=== PATIENT | female | born 1955 | race Caucasian/White ===

== ENCOUNTER 2017-10-16 10:01 | Outpatient (CLI) | payer BC | END 2017-10-16 10:02 | disposition home or self-care (01) | LOC: BICRAD 10:01 | PROVIDERS: ATTEND Family Medicine | DX: R05 Cough (principal); R91.8 Other nonspecific abnormal finding of lung field | CPT/HCPCS: 71046 ==

== ENCOUNTER 2017-12-05 13:37 | Outpatient (CLI) | payer BC | END 2017-12-05 13:38 | disposition home or self-care (01) | LOC: BICRAD 13:37 | PROVIDERS: ATTEND Family Medicine | DX: J18.9 Pneumonia, unspecified organism (principal) | CPT/HCPCS: 71046 ==

== ENCOUNTER 2018-10-29 20:13 | Emergency (ER) | payer BC | END 2018-10-29 21:54 | disposition home or self-care (01) | LOC: SCSER 20:13 | DX: H66.91 Otitis media, unspecified, right ear (principal); E03.9 Hypothyroidism, unspecified; E78.5 Hyperlipidemia, unspecified; Z79.899 Other long term (current) drug therapy | CPT/HCPCS: 99282 ==

== ENCOUNTER 2018-11-12 14:31 | Outpatient (CLI) | payer BC ==
[2018-11-12 14:58] LABS: Estimated GFR-MDRD - POC Greater than 90
--- NOTE | 2018-11-12 15:47 | MRI ---
EXAM: MRI of the brain without and with contrast HISTORY: Right ear discomfort with hearing loss and tinnitus for 3 weeks COMPARISON: MRI brain 02/15/2012 TECHNIQUE: Multiplanar multisequence MR images were obtained of the brain without and with IV contras t. FINDINGS: The brain demonstrates normal signal intensity on all obtained sequences. No restricted diffusion. No abnormal enhancement. No hydronephrosis. No extra-axial fluid collection or intracranial hemorrhage. Thin cuts through the internal auditory canals shows a normal appearance of the 7th and 8th nerves. The cochlea and semicircular canals are symmetric. The expected flow voids are present. Corpus callosum, pituitary, and craniocervical junction are within normal limits. The calvarium and overlying soft tissues are unremarkable. The paranasal sinuses are well aerated. There is opacification of the right mastoid air cells. The le ft mastoid air cells are well aerated. IMPRESSION: 1. No evidence of acute intracranial abnormality. 2. Opacification of the right mastoid air cells.
== END 2018-11-12 14:32 | disposition home or self-care (01) ==
LOC: SCSMRI 14:31
PROVIDERS: ATTEND Family Medicine
DX: H92.09 Otalgia, unspecified ear (principal)
CPT/HCPCS: 70553; 82565

== ENCOUNTER 2022-09-28 20:18 | Observation (INO) | payer OTHER, MEDICARE ==
[2022-09-28] MEDS ORDERED: Ketorolac Tromethamine 30 MG/ML VIAL ONE (21:40)
[2022-09-28] MEDS ORDERED: Ondansetron PF 4 MG/2 ML Vial ONE (21:40)
[2022-09-28 21:41] LABS: ALT (SGPT) 16 U/L (8-55); AST (SGOT) 19 U/L (5-34); Albumin 3.2 g/dL (3.4-4.8); Alkaline Phosphatase 54 U/L (40-110); Anion Gap 11 mmol/L (10-20); BUN (Urea Nitrogen) 13 mg/dL (9.8-20.1); Bilirubin, Total 0.2 mg/dL (0.2-1.2); Calc. Creatinine Clearance 0 mL/min (70-130); Calcium 8.1 mg/dL (7.8-10.44); Carbon Dioxide 26 mmol/L (23-31); Chloride 110 mmol/L (98-107); Estimated GFR 93; Globulin 1.9 g/dL (2.4-3.5); Glucose 111 mg/dL (80-115); Potassium 3.8 mmol/L (3.5-5.1); Protein, Total 5.1 g/dL (5.8-8.1); Sodium 143 mmol/L (136-145)
[2022-09-28 21:45] LABS: #Basophils 0.1 thou/uL (0.0-0.2); #Eosinphils 0.3 thou/uL (0.0-0.7); #Monocytes 0.7 thou/uL (0.11-0.59); #Neutrophils 9.9 thou/uL (1.40-6.50); %Basophils 0.6 % (0.0-1.0); %Eosinophils 2.1 % (0.0-10.0); %Lymphocytes 13.9 % (21.0-51.0); %Monocytes 5.4 % (0.0-10.0); %Neutrophils 77.2 % (42.0-75.0); Hemoglobin 14.7 g/dL (12.0-16.0); Mean Corpuscular HGB CONC 30.4 g/dL (32.0-36.0); Mean Corpuscular Hemoglobin 26.7 pg (27.0-31.0); Mean Corpuscular Volume 87.7 fl (78.0-98.0); Mean Platelet Volume 9.7 fL (7.4-10.4); Platelet Count 246 10x3/uL (130-400); RBC Distribution Width 13.7 % (11.5-14.5); Red Blood Cell (RBC) Count 5.51 mill/uL (4.20-5.40); White Blood Cell (WBC) Count 12.8 10x3/uL (4.8-10.8)
[2022-09-28] MEDS ORDERED: HYDROcodone/Acetaminophen 5/325 mg Tablet ONE (23:42)
[2022-09-28] MEDS ORDERED: Diazepam 5 MG TAB ONE (23:49)
[2022-09-29] MEDS ORDERED: DULoxetine 60 MG CAP PO SCH (02:30)
[2022-09-29] MEDS ORDERED: Gabapentin 300 MG CAP PO SCH (02:30)
[2022-09-29] MEDS ORDERED: Ondansetron ODT 4 MG TAB SL PRN (03:00)
[2022-09-29] MEDS ORDERED: Acetaminophen 325 MG TAB PO PRN (03:00)
[2022-09-29] MEDS ORDERED: Ondansetron PF 4 MG/2 ML Vial IVP PRN (03:00)
[2022-09-29] MEDS ORDERED: HYDROcodone/Acetaminophen 10/325 mg Tablet PO PRN (03:52)
[2022-09-29] MEDS ORDERED: HYDROcodone/Acetaminophen 5/325 mg Tablet ONE (04:06)
[2022-09-29 05:10] VITALS: BMI 26.8
[2022-09-29 06:16] LABS: #Eosinphils 0.1 thou/uL (0.0-0.7); #Monocytes 0.7 thou/uL (0.11-0.59); %Basophils 0.4 % (0.0-1.0); %Eosinophils 1.2 % (0.0-10.0); %Lymphocytes 16.3 % (21.0-51.0); %Monocytes 7.2 % (0.0-10.0); %Neutrophils 74.4 % (42.0-75.0); Hemoglobin 13.6 g/dL (12.0-16.0); Mean Corpuscular HGB CONC 30.6 g/dL (32.0-36.0); Mean Corpuscular Hemoglobin 26.9 pg (27.0-31.0); Mean Corpuscular Volume 87.9 fl (78.0-98.0); Mean Platelet Volume 9.6 fL (7.4-10.4); Platelet Count 233 10x3/uL (130-400); RBC Distribution Width 13.9 % (11.5-14.5); Red Blood Cell (RBC) Count 5.06 mill/uL (4.20-5.40); White Blood Cell (WBC) Count 9.4 10x3/uL (4.8-10.8)
[2022-09-29 06:36] LABS: Anion Gap 8 mmol/L (10-20); BUN (Urea Nitrogen) 14 mg/dL (9.8-20.1); Calc. Creatinine Clearance 106 mL/min (70-130); Calcium 7.9 mg/dL (7.8-10.44); Carbon Dioxide 27 mmol/L (23-31); Chloride 108 mmol/L (98-107); Estimated GFR 98; Glucose 100 mg/dL (80-115); Sodium 139 mmol/L (136-145)
[2022-09-29 06:38] LABS: Troponin I Less than 0.010 ng/mL (< 0.028)
[2022-09-29] MEDS: HYDROcodone/Acetaminophen 5/325 mg Tablet PO PRN ×2 (08:14→16:08)
[2022-09-29 09:27] LABS: Troponin I Less than 0.010 ng/mL (< 0.028)
[2022-09-29 16:34] VITALS: BP 131/86; TEMP 98.1
== END 2022-09-29 16:36 | disposition home or self-care (01) ==
LOC: ERS 20:18 → 2NO 09-29 02:55
PROVIDERS: ADMIT Family Medicine; ATTEND Family Medicine
DX: E86.1 Hypovolemia (principal); I95.9 Hypotension, unspecified; R55 Syncope and collapse; R07.89 Other chest pain; I10 Essential (primary) hypertension; E78.00 Pure hypercholesterolemia, unspecified; E03.9 Hypothyroidism, unspecified; R73.03 Prediabetes; M06.9 Rheumatoid arthritis, unspecified; M35.00 Sjogren syndrome, unspecified; F17.210 Nicotine dependence, cigarettes, uncomplicated; I77.810 Thoracic aortic ectasia; M47.812 Spondylosis without myelopathy or radiculopathy, cervical region; Z79.82 Long term (current) use of aspirin; Z79.84 Long term (current) use of oral hypoglycemic drugs; Z79.890 Hormone replacement therapy; Z79.899 Other long term (current) drug therapy; Z88.8 Allergy status to other drugs, medicaments and biological substances; V89.2XXA Person injured in unspecified motor-vehicle accident, traffic, initial encounter
CPT/HCPCS: 36415; 70450; 71045; 72125; 80048; 80053; 84484; 85025; 93005; 93306; 96361; 96374; 96375; G0378; J1885; J2405

== ENCOUNTER 2024-11-20 15:17 | Outpatient (CLI) | payer MEDICARE, OTHER | END 2024-11-20 15:18 | disposition home or self-care (01) | LOC: RAD 15:17 | PROVIDERS: ATTEND Family Medicine | DX: M25.561 Pain in right knee (principal); M17.11 Unilateral primary osteoarthritis, right knee; I10 Essential (primary) hypertension; R73.03 Prediabetes | CPT/HCPCS: 36415; 80048; 83036; 84443 ==